=== PATIENT | female | born 1980 | race Caucasian/White ===

== ENCOUNTER 2024-10-01 08:02 | Outpatient (CLI) | payer BC, SELFPAY ==
--- NOTE | ~2024-10-01 | MR_ITS ---
MRI of the right shoulder Technique: Axial proton-density fat-sat images, coronal proton density fat-sat and T2 fat-sat images, and sagittal T1-weighted and T2 fat-sat images were acquired. Clinical History: Osteoarthritis Findings: There is minimal AC joint degenerative change. Coracoclavicular, coracoacromial, and coraco humeral ligaments are intact. Supraspinatus and infraspinatus tendons are intact, without partial or full-thickness tear. There is minimal tendinosis. Subscapularis tendon intact. Tendon of long head of the biceps is probably intact . No labral tear evident. Inferior glenohumeral ligament is intact. No degenerative change or effusion of the glenohumeral join t. There is minimal fluid in the subacromial/subdeltoid bursa. No muscle atrophy or edema. Impression: Minimal subacromial/subdeltoid bursitis. Minimal AC joint degenerative change. Minimal rotator cuff tendinosis. Reviewed, dictated and finalized at [facility]. Impression: Minimal subacromial/subdeltoid bursitis. Minimal AC joint degenerative change. Minimal rotator cuff tendinosis.
== END 2024-10-01 08:03 | disposition home or self-care (01) ==
DX: M19.011 Primary osteoarthritis, right shoulder (principal)
CPT/HCPCS: 73221